=== PATIENT | male | born 2000 | race Two or more races ===

== ENCOUNTER 2023-12-12 18:17 | Emergency (ER) | payer MEDICAID, OTHER ==
[~2023-12-12] VITALS: Ht 177.8 cm; Wt 83.7 kg
[2023-12-12 21:56] VITALS: BP 129/62; PULSE 82; RESP 20; TEMP 98.1; O2SAT 98
[2023-12-12 22:13] LABS: Urine Bacteria None Seen /hpf (None Seen)
[2023-12-12 22:41] LABS: Urine Blood Negative /uL (Negative); Urine Clarity Clear (Clear); Urine Color Light-Yellow (Yellow); Urine Protein, UAD Negative (Negative); Urine Specific Gravity 1.007 (1.001-1.035); Urine Urobilinogen Normal (Negative); Urine WBC 1 /hpf (0 - 3)
[2023-12-14 07:06] LABS: RPR Non Reactive (Non Reactive)
[2023-12-14 08:45] LABS: Hepatitis B Surface Antibody Negative (Negative)
[2023-12-14 08:57] LABS: Hepatitis B Surface Antigen Negative (Negative)
[2023-12-14 17:06] LABS: Chlamydia Trachomatis, NAA Negative (Negative); Neisseria gonorrhoeae, NAA Negative (Negative)
== END 2023-12-12 23:07 | disposition left against medical advice (07) ==
LOC: ER 18:17
DX: Z20.2 Contact with and (suspected) exposure to infections with a predominantly sexual mode of transmission (principal); Z79.899 Other long term (current) drug therapy; Z79.01 Long term (current) use of anticoagulants; Z20.828 Contact with and (suspected) exposure to other viral communicable diseases
CPT/HCPCS: 36415; 81001; 86592; 86703; 86706; 86803; 87340